=== PATIENT | female | born 1975 | race Two or more races ===

== ENCOUNTER → 2017-05-05 | Outpatient (CLI) | payer OTHER ==
--- NOTE | 2017-05-06 06:01 | REP ---
Clinical: Menorrhagia . Technique: Transabdominal pelvic ultrasound followed by transvaginal examination for better evaluation of the endometrium and adnexa with color Doppler evaluation of the ovaries. Findings: Bladder is unremarkable and measures 12.3 x 11.7 x 7.1 cm . Heterogeneous anteverted uterus measures 14.1 x 5.7 x 7.1 cm with 3.4 cm posterior right subserosal fibroid. The endometrial complex measures 21.0 mm thickness. Single 1.3 mm Nabothian cyst. Bilateral ovaries are normal in appearance. Right ovary measures 2.6 x 1.4 x 2.6 cm. Left ovary measures 2.2 x 1.6 x 1.6 cm. No pelvic fluid or adnexal mass lesion. Impression: 1. Anteverted uterus with 3.4 cm posterior right subserosal fibroid. 2. Endometrial thickening likely related to menstrual cycle. Signed by Brenton Kumar MD 05/06/2017 05:54 A
== END ==
LOC: M WHC 14:56
PROVIDERS: ATTEND Nurse Practitioner Women's Health
DX: N92.0 Excessive and frequent menstruation with regular cycle (principal); N85.4 Malposition of uterus

== ENCOUNTER → 2017-08-10 | Outpatient (REF) | payer OTHER ==
[~2017-08-10] MED LIST: ESCI10TA2 PO; HYDR25TAB PO; IBUP40TA PO; LOSA25TA8 PO; OXYC1TAB23 PO
== END ==
LOC: M SFHCWAGY 18:53
PROVIDERS: ATTEND Nurse Practitioner Family
DX: Z01.419 Encounter for gynecological examination (general) (routine) without abnormal findings (principal)

== ENCOUNTER → 2017-09-16 | Outpatient (CLI) | payer OTHER ==
--- NOTE | 2017-09-16 15:54 | REPMRS ---
Patient History The patient states she had a clinical breast exam in 07/2017. Family history of breast cancer in paternal aunt at age 45. Took hormonal contraceptives for 6 years. Digital Woman Screen Mammo: September 16, 2017 - Exam #: [id number] Bilateral CC and MLO view(s) were taken. Technologist: Gudelia Joseph, Technologist FINDINGS: There are scattered fibroglandular densities. There is no evidence of cancer on this mammogram. ASSESSMENT: BI-RADS/ACR category 2 mammogram. Benign finding(s). Recommendation Routine screening mammogram of both breasts in 1 year (for women over age 40). This mammogram was interpreted with the aid of an FDA-approved computer-aided dectection system. Electronically Signed By: Kareem Benjamin MD 09/16/17 [id number]
== END ==
LOC: M WHC 14:45
PROVIDERS: ATTEND Nurse Practitioner Family
DX: Z12.31 Encounter for screening mammogram for malignant neoplasm of breast (principal); Z92.0 Personal history of contraception

== ENCOUNTER → 2017-10-15 | Outpatient (CLI) | payer OTHER ==
--- NOTE | 2017-10-15 19:25 | REP ---
HISTORY: Pain and swelling. TECHNIQUE: Multiple ultrasonographic images of the deep venous structures of the left thigh were obtained from the common femoral vein to the popliteal vein along with Doppler interrogation and color flow Doppler images. FINDINGS: There is no abnormal echogenic material seen within any of the visualized deep venous structures that would suggest acute thrombosis. Coaptation is unremarkable throughout. Doppler interrogation shows an expected response to respiratory variability and augmentation. The color flow images show what appears to be a normal vascular pattern throughout. IMPRESSION: There is no ultrasonographic evidence of deep venous thrombosis involving any of the visualized deep venous structures of the left thigh, as described above. Signed by Sahil Leon DO 10/15/2017 07:45 P
== END ==
LOC: M RAD 17:25
PROVIDERS: ATTEND Physician Assistant
DX: M79.605 Pain in left leg (principal)

== ENCOUNTER → 2018-09-28 | Outpatient (CLI) | payer OTHER | LOC: M WHC 15:00 | DX: Z12.31 Encounter for screening mammogram for malignant neoplasm of breast (principal); Z92.0 Personal history of contraception | CPT/HCPCS: 77067 ==

== ENCOUNTER → 2019-12-05 | Outpatient (CLI) | payer OTHER ==
[~2019-12-05] MED LIST changes: +LOSA25TA14 PO; -LOSA25TA8 PO
--- NOTE | 2019-12-05 15:28 | REPMRS ---
Patient History The patient states she had a clinical breast exam in 2019. Family history of breast cancer at age 45 in paternal aunt. Took hormonal contraceptives for 6 years. Digital Woman Screen Mammo: December 05, 2019 - Exam #: [id number] Bilateral CC and MLO view(s) were taken. Technologist: Yamilka Yee, Technologist Prior study comparison: September 28, 2018, bilateral digital woman screen mammo performed at [facility]. September 16, 2017, digital woman screen mammo performed at [facility]. FINDINGS: There are scattered fibroglandular densities. There has been no change in the appearance of the mammogram from the prior studies. There is a mild amount of scattered fibroglandular density which is fairly symmetric. There is no interval development of dominant mass, architectural distortion, or grouped microcalcification suggestive of malignancy. 3-D tomosynthesis shows no additional findings. Assessment: BI-RADS/ACR category 1 mammogram. Negative Mammogram. Recommendation Routine screening mammogram of both breasts in 1 year (for women over age 40). This patient's Lifetime Breast Cancer Risk is estimated at 13.5 %. This mammogram was interpreted with the aid of an FDA-approved computer-aided dectection system. Electronically Signed By: Leonardo Massey MD 12/05/19 [id number]
== END ==
LOC: M WHC 13:50
PROVIDERS: ATTEND Nurse Practitioner Family
DX: Z12.31 Encounter for screening mammogram for malignant neoplasm of breast (principal); Z92.0 Personal history of contraception

== ENCOUNTER → 2021-09-04 | Outpatient (CLI) | payer OTHER ==
[~2021-09-04] MED LIST changes: +ESCI10TA16 PO; -ESCI10TA2 PO; +HYDR-3490 PO; -HYDR25TAB PO; +IBUP1TAB5 PO; -IBUP40TA PO
--- NOTE | 2021-09-04 16:19 | REPMRS ---
Patient History The patient states she had a clinical breast exam in August 2021. Family history of breast cancer at age 45 in paternal aunt. Took hormonal contraceptives for 6 years. Patient states no breast complaints today. Patient has signed MRS History Sheet. Digital Woman Screen Mammo: September 04, 2021 - Exam #: [id number] Bilateral CC and MLO view(s) were taken. Technologist: Carline Encinas, Technologist Prior study comparison: December 05, 2019, bilateral digital woman screen mammo performed at [facility]. September 28, 2018, bilateral digital woman screen mammo performed at [facility]. September 16, 2017, digital woman screen mammo performed at [facility]. FINDINGS: There are scattered fibroglandular densities. The Volpara volumetric breast density category is:B. There has been no change in the appearance of the mammogram from the prior studies. There is a mild amount of scattered fibroglandular density which is fairly symmetric. There is no interval development of dominant mass, architectural distortion, or grouped microcalcification suggestive of malignancy. 3-D tomosynthesis shows no additional findings. Assessment: BI-RADS/ACR category 1 mammogram. Negative Mammogram. Recommendation Routine screening mammogram of both breasts in 1 year (for women over age 40). This patient's [facility] Lifetime Breast Cancer Risk is estimated at 13.1 %. This mammogram was interpreted with the aid of an FDA-approved computer-aided dectection system. Electronically Signed By: Leonardo Massey MD 09/04/21 [id number]
== END ==
LOC: M WHC 14:16
PROVIDERS: ATTEND Nurse Practitioner Women's Health
DX: Z12.31 Encounter for screening mammogram for malignant neoplasm of breast (principal); Z80.3 Family history of malignant neoplasm of breast

== ENCOUNTER → 2023-05-20 | Outpatient (CLI) | payer OTHER ==
[~2023-05-20] MED LIST changes: +LOSA25TA13 PO; -LOSA25TA14 PO
== END ==
LOC: M WHC 16:00
PROVIDERS: ATTEND Advanced Practice Midwife
DX: Z12.31 Encounter for screening mammogram for malignant neoplasm of breast (principal)